=== PATIENT | female | born 1950 | race Caucasian/White ===

== ENCOUNTER 2022-11-22 18:20 | Emergency (ER) | payer MEDICARE, OTHER ==
[2022-11-22 18:37] VITALS: PULSE 87
[2022-11-22] MEDS ORDERED: Sodium Chloride 0.9% 10 ML Syringe FLUSH PRN (18:43)
[2022-11-22] MEDS ORDERED: Heparin Sodium 5,000 Units/ML Vial IVPUSH ONE (20:49)
[2022-11-22] MEDS ORDERED: Heparin Sodium/D5W 25,000 UNITS/500 ML BAG IV SCH (21:00)
[2022-11-22] MEDS ORDERED: Insulin Regular, Human 100 Units/ML 3 ML Vial IV STA (21:14)
[2022-11-22] MEDS ORDERED: Insulin Regular, Human 100 Units/ML 3 ML Vial SUBCUT ONE (21:17)
[2022-11-22] MEDS ORDERED: Nitroglycerin 2% Oint 1 GM UD Packet TOP ONE (21:17)
[2022-11-22] MEDS: Lactated Ringers 1,000 ML IV ONE ×2 (21:48→22:07)
[2022-11-22 21:59] LABS: CORONAVIRUS COVID-19 NAA NEGATIVE (NEGATIVE)
[2022-11-23 04:09] VITALS: BP 141/77
== END 2022-11-22 22:12 ==
LOC: JD.ED 18:20
DX: I21.4 Non-ST elevation (NSTEMI) myocardial infarction (principal); I24.9 Acute ischemic heart disease, unspecified; E11.65 Type 2 diabetes mellitus with hyperglycemia; I10 Essential (primary) hypertension; E66.9 Obesity, unspecified; Z68.39 Body mass index [BMI] 39.0-39.9, adult; Z79.899 Other long term (current) drug therapy; Z79.82 Long term (current) use of aspirin; Z20.822 Contact with and (suspected) exposure to COVID-19
CPT/HCPCS: 0241U; 36415; 71045; 80053; 83735; 83880; 84484; 85025; 85379; 85610; 85730; 93005; 96365; 96375; 99285; A9270; J1644; J1815; J7120